=== PATIENT | male | born 1960 | race Two or more races ===

== ENCOUNTER 2021-09-04 11:50 | Outpatient (CLI) | payer OTHER | END 2021-09-04 12:02 | disposition home or self-care (01) | LOC: RAD 11:50 | PROVIDERS: ATTEND Orthopaedic Surgery | DX: M54.2 Cervicalgia (principal) | CPT/HCPCS: 72141 ==

== ENCOUNTER 2021-12-01 13:14 | Outpatient (CLI) | payer OTHER | END 2021-12-01 13:30 | disposition home or self-care (01) | LOC: SONOGRAMA 13:14 | PROVIDERS: ATTEND Orthopaedic Surgery | DX: M25.512 Pain in left shoulder (principal) ==